=== PATIENT | female | born 1985 | race Caucasian/White ===

== ENCOUNTER 2017-04-16 22:26 | Inpatient (IN) | payer MEDICAID ==
[~2017-04-16] VITALS: Ht 157.5 cm; Wt 63.1 kg
[2017-04-17 00:28] LABS: BASOPHIL % 0.8 % (0-2); PLATELET COUNT 289 x10^3mcL (130-400); RED CELL DISTRIBUTION WIDTH 13.9 % (11.5-14.5)
[2017-04-17 01:52] LABS: microscopic required? YES; urine erythrocyte 3+ (NEGATIVE)
[2017-04-17 03:26] VITALS: BP 116/73
[2017-04-17 03:44] LABS: T3 TOTAL 1.48 ng/mL
[2017-04-17 03:48] VITALS: BP 116/73
[2017-04-17 04:38] LABS: RED BLOOD CELLS 3.33 M/mm3 (4.10-5.10)
[2017-04-17 04:59] LABS: TOTAL IRON BINDING CAPACITY 272 ug/dL (250-450)
[2017-04-17 05:03] LABS: IRON 29 ug/dL (50-170)
[2017-04-17 05:11] LABS: AMPHETAMINE QUAL UR NONE DETECTED (NEG <=1000)
[2017-04-17 05:26] LABS: CALCIUM 8.8 mg/dL (8.5-10.1); CARBON DIOXIDE 19.8 mmol/L (21-32); CHLORIDE SERUM 106 mmol/L (98-107); CREATININE SERUM 0.6 mg/dL (0.6-1.0); GFR1 > 60 mL/min; GLUCOSE SERUM 109 mg/dL (74-106); POTASSIUM SERUM 3.9 mmol/L (3.5-5.1); SODIUM SERUM 141 mmol/L (136-145)
[2017-04-17 06:09] LABS: FREE T4 1.14 ng/dL (0.76-1.46); FREE THYROXINE INDEX 3.1 ug/dL (1.4-4.5)
[2017-04-17 07:33] LABS: MAGNESIUM 1.8 mg/dL (1.8-2.4); PHOSPHOROUS 4.6 mg/dL (2.5-4.9)
[2017-04-17 07:35] LABS: CHOLESTEROL/HDL RATIO 2.5
[2017-04-17 08:37] LABS: BASOPHIL % 0.2 % (0-2); PLATELET COUNT 216 x10^3mcL (130-400); RED CELL DISTRIBUTION WIDTH 14.1 % (11.5-14.5)
[2017-04-17 08:58] VITALS: BP 106/64
[2017-04-17 11:46] VITALS: Ht 157.5 cm; Wt 63.1 kg
[2017-04-17 16:07] VITALS: BP 95/59
[2017-04-17 19:00] LABS: BASOPHIL % 0.2 % (0-2); PLATELET COUNT 233 x10^3mcL (130-400); RED CELL DISTRIBUTION WIDTH 13.9 % (11.5-14.5)
[2017-04-17 20:48] VITALS: BP 95/59
== END 2017-04-17 21:16 | disposition home or self-care (01) | DRG 564 ==
LOC: ED 22:26 → DU 04-17 01:48 → MU 04-17 10:21
PROVIDERS: Emergency Medicine; Family Medicine
DX: O02.1 Missed abortion (principal); N17.0 Acute kidney failure with tubular necrosis; O08 Complications following ectopic and molar pregnancy; R31.9 Hematuria, unspecified; D64.9 Anemia, unspecified; D72.89 Other specified disorders of white blood cells
CPT/HCPCS: 83880; 84439; J2405; J2590; J2916; J3010; J7030

== ENCOUNTER 2017-11-23 17:48 | Emergency (ER) | payer MEDICAID ==
[2017-11-23 17:55] VITALS: Ht 157.5 cm
[2017-11-23 18:30] LABS: microscopic required? YES; urine erythrocyte 1+ (NEGATIVE)
[2017-11-23 18:37] LABS: BASOPHIL % 0.4 % (0-2); RED CELL DISTRIBUTION WIDTH 12.4 % (11.5-14.5)
[2017-11-23 18:53] LABS: PLATELET COUNT 370 x10^3mcL (130-400)
[2017-11-23 21:02] VITALS: BP 105/70
== END 2017-11-23 21:02 | disposition home or self-care (01) ==
LOC: ED 17:48
PROVIDERS: Emergency Medicine
DX: O20.0 Threatened abortion (principal); Z3A.12 12 weeks gestation of pregnancy
CPT/HCPCS: 36415